=== PATIENT | male | born 1950 | race Caucasian/White ===

== ENCOUNTER → 2018-05-14 10:53 | Emergency (ER) | payer MEDICARE, BC ==
[~2018-05-14 10:53] MED LIST: Ciprofloxacin TAB* 250 MG PO ONE; Famotidine TAB* 20 MG PO ONE; HYDROmorphone INJ* 2 MG/ML CARPUJECT SYRINGE IV SLOW PU ONE; HYDROmorphone INJ1* 1 MG/ML SYRINGE IV SLOW PU ONE; HYDROmorphone INJ1* 1 MG/ML SYRINGE ONE; Iohexol 300* (CONTRAST) 10 ML SDV IV ONE; Morphine VIAL* 4 MG/ML VIAL (1 ml vial) IV ONE; NS 0.9% 1000 ML* 1,000 ML IV ONE; metroNIDAZOLE TAB* 250 MG PO ONE; oxyCODONE/Acetamin 5/325 MG* TAB PO ONE
--- OUTSIDE RECORDS SUMMARY | 2018-05-14 11:24 | XMS REPORT | Continuity of Care Document ---
:1950 External Reference #:[id number] Author Name Marce Diamond PA-C Address [address] [place] [address] [place] [address] Care Team Providers Name Role Phone Lauri Ortega MD Care Team Information Algorithm Design Engineer Unavailable Lauri Ortega MD Primary Care Physician Unavailable Payers Type Date Identification Numbers Payment Provider Subscriber Policy Number: [id number] Medicare Rogelio Young PayID: [id number] [facility] [address] [place] [address] Policy Number: [id number] [facility] Rogelio Young PayID: [id number] [address] [place] [address] Advance Directives Description No Information Available Problems Date Description Provider Status Onset: 03/16/2013 Essential hypertension GERDA Guerra Active Onset: 03/16/2013 Pure hypercholesterolemia GERDA Guerra Active Onset: Acute gastrointestinal hemorrhage Active Onset: Anemia due to blood loss Active Onset: Chest discomfort Active Onset: Coronary arteriosclerosis Active Onset: H/O: anticoagulant therapy Active Onset: Diverticulitis of large intestine Active Onset: For resuscitation Active Onset: Gastroesophageal reflux disease Active Onset: Hyperlipidemia Active Onset: Hypertensive disorder Active Onset: Lightheadedness Active Onset: Benign prostatic hyperplasia Active Onset: 04/06/2018 Internal hemorrhoids Marce Diamond PA-C Active Onset: 04/06/2018 Rectal pain Marce Diamond PA-C Active Onset: 04/25/2018 Generalized abdominal pain LISHA GrissomC Active Onset: 04/25/2018 Nausea Marce Diamond PA-C Active Onset: 04/25/2018 Weight decreased Marce Diamond PA-C Active Family History Description No Information Available Social History Type Date Description Comments Sex Unknown ETOH Use Negative For Drinks 2 Alcoholic Beverages Per Day Tobacco Use Start: Unknown Patient has never smoked Smoking Status Reviewed: 04/25/18 Patient has never smoked Allergies, Adverse Reactions, Alerts Date Description Reaction Status Severity Comments 03/30/2018 Spironolactone Free Text Active 03/16/2013 NKDA Inactive Medications Medication Date Status Form Strength Qnty SIG Indications Ordering Provider Hydrocortisone 04/06/ Active Suppository 25mg 24unit 1 by K64.8 Marce [address]ate [address] LBarbara rectum Dara twice , JAZ daily for 1-2 weeks Lorazepam 03/08/ Active Tablets 0.5mg 60tabs F41.1 2017 Lauri House MD Lisinopril 08/17/ Active Tablets 5mg 90tabs I10 2017 Lauri House MD Rosuvastatin 12/25/ Active Tablets 5mg 90tabs E78.4 Breiman, Calcium 2016 MD Ed Metoprolol 11/17/ Active Tablets ER 50mg 90tabs Hilsdorf, Succinate ER 2016 24HR HENRY Tarango Colchicine 03/23/ Active Tablets 0.6mg 40tabs Breiman, 2015 MD Ed Ecotrin Low 12/17/ Active Tablets DR 81mg Every Unknown Strength 2015 Proscar 12/17/ Active Tablets 5mg Every Unknown 2015 Day Nitrostat 12/17/ Active Tablets Sub 0.4mg Q5M prn Unknown 2015 For chest pain Aspirin Ec 11/17/ Active Tablets DR 81mg 30tabs Midura, 2015 Lauri House MD Pantoprazole 08/12/ Active Tablets DR 40mg 90tabs Midura, Sodium 2010 Lauri House MD Amlodipine 08/13/ Active Tablets 10mg 30tabs Breimaglenna, Besylate 2009 MD Ed Tamsulosin HCL / Active Capsules 0.4mg 30caps 1 po Unknown 0000 qpm Probiotics / Active Unknown 0000 Hydrocodone-Acet / Active Tablets 5-325mg prn Unknown aminophen 0000 Anusol-HC 04/06/ Hx Suppository 25mg 24unit 1 by K64.8 Marce 2018 - s Bran. rectum Swanstrom 2018 twice , PA-C daily for 1-2 weeks Hydrocodone-Acet 03/29/ Hx Tablets 5-325mg 28tabs N41.0 [facility], aminophen 2018 - Lauri House, 2017 Doxycycline 03/17/ Hx Capsules 100mg 20caps N45.1 [facility], Monohydrate 2018 - Lauri House, 2017 Anucort-HC 02/25/ Hx Suppository 25mg 12unit K64.8 [facility], 2018 - jorge House, 2017 Lisinopril 02/13/ Hx Tablets 20mg Daily Ra Gonzalez 2015 - Freddy PATRICIA 2017 Toprol XL 01/22/ Hx Tablets ER 50mg 30tabs Every Unknown 2015 - 24HR Day 2017 Brilinta 01/21/ Hx Tablets 90mg Twice Unknown 2016 - Daily 2017 Allopurinol 12/20/ Hx Tablets 300mg 30tabs [facility], 2014 - Lauri House, 2017 Tamsulosin HCL 06/16/ Hx Capsules 0.4mg 30caps Jordan, 2010 - Lauri House, 2017 Pantoprazole / Hx Tablets DR 40mg 30tabs 1 po qd Unknown Sodium - 2017 Metoprolol / Hx Tablets 50mg 30tabs 1 1/2 Unknown Tartrate 0000 - po qd 2015 Amlodipine / Hx Tablets 10mg 90tabs 1 po qd Unknown Besylate - 2017 Vitamin D3 Super / Hx Tablets 2000Unit Unknown Strength - 2017 Immunizations Description No Information Available Vital Signs Date Vital Result Comment 04/25/2018 8:42am Height 70 inches 5'10" Weight 196.00 lb BMI (Body Mass Index) 28.1 kg/m2 04/06/2018 2:48pm Height 70 inches 5'10" Weight 200.00 lb BP Systolic 150 mmHg BP Diastolic 89 mmHg Heart Rate 55 /min BMI (Body Mass Index) 28.7 kg/m2 02/14/2016 2:43pm Height 70 inches 5'10" Weight 204.00 lb BP Systolic 170 mmHg BP Diastolic 98 mmHg Heart Rate 63 /min BMI (Body Mass Index) 29.3 kg/m2 03/16/2013 1:10pm Height 70 inches 5'10" Weight 216.00 lb BP Systolic 130 mmHg BP Diastolic 80 mmHg Heart Rate 54 /min BMI (Body Mass Index) 31.0 kg/m2 Results Test Date Facility Test Result H/L Range Note Comprehensive Metabolic 03/22/2018 N2N/CCD Import A/G Ratio 2.3 CALC 0.6 -2.3 Prof Albumin 4.8 g/dL 3.8-5.5 Alk. Phosphatase 44 U/L 22-95 Alt (SGPT) 16 U/L 7-35 Ast (Sgot) 17 U/L 5-34 BUN 19 mg/dL 6-26 BUN/Creat Ratio 14.6 CALC 8.0-36.0 Calcium 9.3 mg/dL 8.6-10.2 Carbon Dioxide 24 mEq/L 21-32 Chloride 104 mEq/L 94-112 Creatinine 1.3 mg/dL 0.6-1.4 GFR >60 ml/min/1.73m^ >=60 GFR Non- 59 ml/min/1.73m^ Low >=60 Globulin 2.1 g/dL 2.0-4.8 Glucose 157 mg/dL High 70-105 Potassium 4.0 mEq/L 3.6-5.5 Sodium 142 mEq/L 134-149 Total Bilirubin 0.6 mg/dL 0.2-1.3 Total Protein 6.9 g/dL 6.4-8.3 Laboratory test finding 03/08/2018 N2N/CCD Import BUN 20 mg/dL 6- BUN/Creat Ratio 11.8 CALC 8.0-36.0 Calcium 9.4 mg/dL 8.6-10.2 Carbon Dioxide 27 mEq/L 21-32 Chloride 104 mEq/L 94-112 Creatinine 1.7 mg/dL High 0.6-1.4 GFR 52 ml/min/1.73m^ Low >=60 GFR Non- 43 ml/min/1.73m^ Low >=60 Glucose 100 mg/dL 70-105 Potassium 4.2 mEq/L 3.6-5.5 Sodium 136 mEq/L 134-149 Comprehensive Metabolic Prof 12/31/2017 N2N/CCD Import A/G Ratio 2.1 CALC 0.6-2.3 Albumin 4.8 g/dL 3.8-5.5 Alk. Phosphatase 51 U/L 22-95 Alt (SGPT) 20 U/L 7-35 Ast (Sgot) 20 U/L 5-34 BUN 21 mg/dL 6-26 BUN/Creat Ratio 17.5 CALC 8.0-36.0 Calcium 9.6 mg/dL 8.6-10.2 Carbon Dioxide 23 mEq/L 21-32 Chloride 103 mEq/L 94-112 Creatinine 1.2 mg/dL 0.6-1.4 GFR >60 ml/min/1.73m^ >=60 GFR Non- >60 ml/min/1.73m^ >=60 Globulin 2.3 g/dL 2.0-4.8 Glucose 204 mg/dL High 70-105 Potassium 4.2 mEq/L 3.6-5.5 Sodium 134 mEq/L 134-149 Total Bilirubin 0.6 mg/dL 0.2-1.3 Total Protein 7.1 g/dL 6.4-8.3 CBC W/Auto 02/14/2016 [facility] 7.2 3/UL 4.8- 10.8 Differential(!) [address] [place] [address] Count Ser [phone] Auto CNT RBC Red Blood Count 4.12 X106/UL Low 4.60-6.20 Hemoglobin Blood 12.4 g/dL Low 14-18 Hematocrit 37.4 % Low 42-52 MCV (Corpuscular Volume) 90.8 FL 79-97 MCH (Corpuscular Hemoglobin) 30.1 pg 27-31 MCHC (Corpuscular Hemog Conc) 33.2 g/dL 32.0-36.0 RDW 16.3 % High 10.5-15.0 Platelet Count Blood Auto CNT 271 X103/UL 150-450 MPV 7.1 FL Low 7.4-10.4 Lymph% 21.7 % 20.0-45.0 [place]% 6.7 % 1.0-9.0 Neutrophil % 71.6 % 38.0-83.0 Absolute Lymphocytes 1.6 X103/UL 1.0-4.8 Absolute Monocytes 0.5 X103/UL 0.0-0.8 Absolute Neutrophils 5.2 X103/UL 1.5-7.7 Laboratory Studies 01/23/2016 N2N/CCD Import Hematocrit 27 % Low 42-52 Hemoglobin 9.4 g/dL Low 14.0-18.0 Laboratory Studies 01/22/2016 N2N/CCD Import Troponin I 0.01 ng/mL Laboratory Studies 01/22/2016 N2N/CCD Import Absolute Basophils 0 10^3/ul 0-0.2 (auto) Absolute Eosinophils (auto) 0.2 10^3/ul 0-0.6 Absolute Lymphocytes (auto) 1.3 10^3/ul 1.0-4.8 Absolute Monocytes (auto) 0.4 10^3/ul 0-0.8 Absolute Neutrophils (auto) 3.6 10^3/ul 1.5-7.7 Anion Gap 5 mmol/L 2-11 BUN/Creatinine Ratio 10.0 8-20 Basophils (%) (Auto) 0.7 % 0-2 Blood Urea Nitrogen 11 mg/dL 6-24 Calcium Level 8.7 mg/dL 8.6-10.3 Carbon Dioxide Level 28 mmol/L 22-32 Chloride Level 107 mmol/L 101-111 Creatinine 1.10 mg/dL 0.67-1.17 Eosinophils (%) (Auto) 3.3 % 0-6 Estimated GFR () 86.7 Estimated GFR (Non- 67.4 Glucose Level 106 mg/dL High 70-100 Lymphocytes (%) (Auto) 23.0 % Low 25-47 Mean Corpuscular Hemoglobin 30 pg 27-31 Mean Corpuscular Hemoglobin Concent 34 g/dL 31-36 Mean Corpuscular Volume 86 fL 80-94 Mean Platelet Volume 7 um3 Low 7.4-10.4 Monocytes (%) (Auto) 7.0 % 1-9 Neutrophils (%) (Auto) 66.0 % 38-83 Nucleated RBC Absolute Count (auto) 0 10^3/ul Nucleated Red Blood Cells % 0 Platelet Count 212 10^3/ul 150-450 Potassium Level 3.6 mmol/L 3.5-5.0 Red Blood Count 2.86 10^6/ul Low 4.0-5.4 Red Cell Distribution Width 15 % 10.5-15 Sodium Level 140 mmol/L 133-145 White Blood Count 5.4 10^3/ul 3.5-10.8 Laboratory Studies 01/21/2016 N2N/CCD Import Urine Specific 1.002 Low 1.010-1.030 [place] Urine pH 6.0 5-9 Laboratory 01/21/2016 N2N/CCD Import Alanine 114 U/L High 7-52 Studies Aminotransferase (Alt/SGPT) Albumin 3.8 g/dL 3.2-5.2 Albumin/Globulin Ratio 1.5 1-3 Alkaline Phosphatase 49 U/L 34-104 Aspartate Amino Transf (Ast/Sgot) 45 U/L High 13-39 B-Type Natriuretic Peptide 407 pg/mL High Globulin 2.6 g/dL 2-4 International Ratio (Anticoag Ther) 1.00 0.89-1.11 Magnesium Level 1.9 mg/dL 1.9-2.7 Total Bilirubin 0.70 mg/dL 0.2-1.0 Total Protein 6.4 g/dL 6.4-8.9 Xray 01/21/2016 [facility] Radiology Chest Ap Portable <pending> Xray 01/21/2016 [facility] Radiology US Abdomen Limited <pending> Laboratory Studies 01/14/2016 N2N/CCD Import Amylase Level 30 U/L 29- 103 C-Reactive Protein 1.77 mg/L 0-5.00 Lipase 14 U/L 11.0-82.0 Xray 01/02/2016 [facility] Radiology CT Abd/Pel W <pending> Laboratory Studies 01/02/2016 N2N/CCD Import Lactic Acid Level 1.6 mmol/L 0.5-2.0 Xray 09/14/2014 [facility] Radiology Esophagus <pending> Clotest 04/19/2013 [facility] Clotest (SEE NOTE) Xray 09/08/2012 [facility] Radiology CT Abd/Pel W <pending> Xray 05/24/2008 [facility] Radiology CT Abd/Pel W <pending> Xray 04/08/2008 [facility] Radiology CT Abd/Pel W <pending> Xray 03/29/2003 [facility] Radiology CT Abd/Pel W <pending> Procedures Date Code Description Status 04/19/2013 94853 Colonoscopy Completed 04/19/2013 11336 EGD+Biopsy Single Or Multiple Completed 05/25/2008 35652 EGD+Biopsy Single Or Multiple Completed 04/09/2008 69420 Colonscopy+Biopsy Completed 04/02/2006 07894 Colonoscopy Completed 10/08/2005 42421 EGD- Upper Endoscopy Completed 10/06/2005 35208 Colonoscopy Completed 10/06/2005 12456 EGD+Biopsy Single Or Multiple Completed Encounters Type Date Location Provider Dx Diagnosis Office Visit 02/14/2016 [facility] K57.30 [facility] MD int w/o perforation or abscess w/o bleeding K57.31 [facility] int w/o perforation or abscess w bleeding Office Visit 03/16/2013 [facility] [place] 530.81 Esophageal 1:15p [facility] QUALITY COMPLIANCE MANAGER-C 789.00 Pain Abdominal Unspec Site V76.51 Special Screening For Malignant Neoplasms Colon 272.0 Hypercholesterolemia Pure Plan of Treatment Future Appointment(s):06/01/2018 8:45 am - Sridevi Walls MD at [facility]04/25/2018 - ALBERT Grissom-CR10.84 Generalized abdominal painR11.0 FcdyfvA58.4 Abnormal weight lossK62.89 Other specified diseases of anus and uxgfmnI38.5 Hemorrhage of anus and rectum
[2018-05-14 11:45] LABS: ABS Basophils 0 10^3/ul (0-0.2); ABS Eosinophils 0.1 10^3/ul (0-0.6); ABS Lymphocytes 0.9 10^3/ul (1.0-4.8); ABS Monocytes 0.4 10^3/ul (0-0.8); ABS Neutrophils 4.6 10^3/ul (1.5-7.7); ABS Nucleated RBC 0 10^3/ul; Eosinophil % 1.8 %; Hematocrit 39 % (42-52); Hemoglobin 13.6 g/dl (14.0-18.0); Mean Corpuscular HGB Conc 35 g/dl (31-36); Mean Corpuscular Hemoglobin 30 pg (27-31); Mean Corpuscular Volume 85 fL (80-94); Mean Platelet Volume 7.2 fL (7.4-10.4); Nucleated Red Blood Cells % 0; Platelet Count 222 10^3/ul (150-450); Red Blood Count 4.54 10^6/ul (4.00-5.40); Red Cell Distribution Width 14 % (10.5-15)
[2018-05-14 12:00] LABS: Urine Appearance Cloudy; Urine Blood Negative (Negative); Urine Color Yellow; Urine Ketones Negative (Negative); Urine Protein Negative (Negative); Urine Specific Gravity 1.017 (1.010-1.030); Urine Urobilinogen Negative (Negative)
[2018-05-14 12:03] LABS: EGFR Non-African American 63.6 (>60)
--- NOTE | 2018-05-14 12:08 | ED ---
GI/ HPI - HPI Summary HPI Summary: This patient is a 67 year old male presenting to [facility] accompanied by family with a chief complaint of hemorrhoid-like pain since 4am today. Patient states that pain in his rectum radiates into his right testicle, penis, and abd. He states that he felt like he needed to go to the bathroom, but doing so did not alleviate the pain. The pain is constant, but with intermittent spikes in intensity. The pain is rated 5/10 in severity. Symptoms aggravated by nothing. Symptoms alleviated by nothing. Patient denies penile discharge. Patient notes that his antibiotics did not help at all. Patient's brother notes that the patient lost his a year ago and he complains about pain more during the holidays. His brother is unsure if he has been taking his daily medication. - History of Current Complaint Chief Complaint: EDRectalPain Time Seen by Provider: 05/14/18 11:02 Stated Complaint: PAIN IN GENITAL AREA/ABD PAIN Hx Obtained From: Patient Onset/Duration: Started Hours Ago, Still Present Timing: Constant Severity: Moderate Current Severity: Mild Pain Intensity: 5 Location of Pain: Groin, Rectal Associated Signs and Symptoms: Positive: Negative - penile discharge Aggravating Factor(s): Nothing Alleviating Factor(s): Nothing - Additional Pertinent History Primary Care Physician: [id number] - Allergy/Home Medications Allergies/Adverse Reactions: Allergies Allergy/AdvReac Type Severity Reaction Status Date / Time No Known Allergies Allergy Verified 02/24/18 08:21 Home Medications: Home Medications DULoxetine DR CAP* [Cymbalta CAP*] 30 mg PO DAILY 05/14/18 [History Confirmed ] Hydrocodone/Acetaminophen [Hydrocodone-Acetamin 5-325 mg] 1 tab PO Q6HR PRN [History Confirmed 05/14/18] Lisinopril TAB* [Prinivil TAB 5 MG*] 5 mg PO DAILY 05/14/18 [History Confirmed 05/14/18] Metoprolol Succinate XL TAB* [Toprol XL TAB*] 75 mg PO DAILY 05/14/18 [History Confirmed 05/14/18] Rosuvastatin (NF) [Crestor (NF)] 5 mg PO 1700 05/14/18 [History Confirmed ] Tamsulosin CAP* [Flomax CAP*] 0.4 mg PO DAILY 05/14/18 [History Confirmed ] amLODIPine TAB* [Norvasc 5 mg TAB*] 10 mg PO DAILY 05/14/18 [History Confirmed 05/14/18] PMH/Surg Hx/FS Hx/Imm Hx Previously Healthy: Yes Endocrine/Hematology History: Reports: Hx Anticoagulant Therapy Denies: Hx Diabetes - borderline, not on meds Cardiovascular History: Reports: Hx Coronary Artery Disease, Hx Hypercholesterolemia, Hx Hypertension, Hx Syncope Denies: Hx Congestive Heart Failure, Hx Myocardial Infarction, Hx Valvular Heart Disease Respiratory History: Reports: Hx Sleep Apnea Denies: Hx Asthma, Hx Chronic Obstructive Pulmonary Disease (COPD) GI History: Reports: Hx Diverticulosis - bowel resection, Other GI Disorders - GI Bleed History: Reports: Hx Benign Prostatic Hyperplasia Denies: Hx Dialysis, Hx Renal Disease Musculoskeletal History: Reports: Hx Arthritis, Hx Back Problems Sensory History: Reports: Hx Contacts or Glasses - left at home Opthamlomology History: Reports: Hx Contacts or Glasses - left at home - Surgical History Surgery Procedure, Year, and Place: [facility], 2 FT COLON REMOVED FOR DIVERTICULITIS, PARATHYROID,RIGHT KNEE,cardiac stents Hx Anesthesia Reactions: No Infectious Disease History: No Infectious Disease History: Denies: Traveled Outside the [place] in Last 30 Days - Family History Known Family History: Negative: Hypertension - Social History Lives: With Family Alcohol Use: Occasionally Alcohol Amount: on fridays only Hx Substance Use: No Substance Use Type: Reports: None Hx Tobacco Use: No Smoking Status (MU): Never Smoked Tobacco Have You Smoked in the Last Year: No Review of Systems Negative: Fever Positive: Other - rectal pain Genitourinary: Negative - penile discharge Positive: other - testicular pain All Other Systems Reviewed And Are Negative: Yes Physical Exam - Summary Physical Exam Summary: Appearance: Well appearing, no pain distress. Skin: warm, dry, reflects adequate perfusion Head/face: normal Eyes: EOMI, JERZY ENT: mucous membranes moist Neck: supple, non-tender Respiratory: CTA, breath sounds present Cardiovascular: RRR, pulses symmetrical Abdomen: non-tender, soft Bowel Sounds: present Testicular: no rashes or legions, no rectal hemorrhoids, no prostate tenderness , no stool Musculoskeletal: normal, strength/ROM intact Neuro: normal, sensory motor intact, A&Ox3 Triage Information Reviewed: Yes Vital Signs On Initial Exam: Initial Vitals Pulse Pulse Ox 56 96 05/14/18 11:20 05/14/18 11:20 Vital Signs Reviewed: Yes Diagnostics - Vital Signs Vital Signs Temp Pulse Resp BP Pulse Ox 05/14/18 11:41 98.5 F 55 18 193/103 98 05/14/18 11:32 18 05/14/18 11:22 54 193/103 97 05/14/18 11:21 52 192/100 96 05/14/18 11:20 56 96 - Laboratory Lab Results: Lab Results 05/14/18 05/14/18 05/14/18 Range/Units 11:29 11:29 11:29 WBC 6.0 (3.5-10.8) 10^3/ul RBC 4.54 (4.00-5.40) 10^6/ul Hgb 13.6 L (14.0-18.0) g/dl Hct 39 L (42-52) % MCV 85 (80-94) fL MCH 30 (27-31) pg MCHC 35 (31-36) g/dl RDW 14 (10.5-15) % Plt Count 222 (150-450) 10^3/ul MPV 7.2 L (7.4-10.4) fL Neut % (Auto) 76.3 % Lymph % (Auto) 15.0 % Mclean % (Auto) 6.1 % Eos % (Auto) 1.8 % Baso % (Auto) 0.8 % Absolute Neuts (auto) 4.6 (1.5-7.7) 10^3/ul Absolute Lymphs (auto) 0.9 L (1.0-4.8) 10^3/ul Absolute Monos (auto) 0.4 (0-0.8) 10^3/ul Absolute Eos (auto) 0.1 (0-0.6) 10^3/ul Absolute Basos (auto) 0 (0-0.2) 10^3/ul Absolute Nucleated RBC 0 10^3/ul Nucleated RBC % 0 ESR Pending INR (Anticoag Therapy) 1.00 (0.77-1.02) Lactic Acid (0.5-2.0) mmol/L Ammonia 40 (16-53) mcmol/L Urine Color Urine Appearance Urine pH (5-9) Ur Specific [place] (1.010-1.030) Urine Protein (Negative) Urine Ketones (Negative) Urine Blood (Negative) Urine Nitrate (Negative) Urine Bilirubin (Negative) Urine Urobilinogen (Negative) Ur Leukocyte Esterase (Negative) Urine Glucose (Negative) 05/14/18 05/14/18 Range/Units 11:29 11:45 WBC (3.5-10.8) 10^3/ul RBC (4.00-5.40) 10^6/ul Hgb (14.0-18.0) g/dl Hct (42-52) % MCV (80-94) fL MCH (27-31) pg MCHC (31-36) g/dl RDW (10.5-15) % Plt Count (150-450) 10^3/ul MPV (7.4-10.4) fL Neut % (Auto) % Lymph % (Auto) % Mclean % (Auto) % Eos % (Auto) % Baso % (Auto) % Absolute Neuts (auto) (1.5-7.7) 10^3/ul Absolute Lymphs (auto) (1.0-4.8) 10^3/ul Absolute Monos (auto) (0-0.8) 10^3/ul Absolute Eos (auto) (0-0.6) 10^3/ul Absolute Basos (auto) (0-0.2) 10^3/ul Absolute Nucleated RBC 10^3/ul Nucleated RBC % ESR INR (Anticoag Therapy) (0.77-1.02) Lactic Acid 1.3 (0.5-2.0) mmol/L Ammonia (16-53) mcmol/L Urine Color Yellow Urine Appearance Cloudy Urine pH 6.0 (5-9) Ur Specific [place] 1.017 (1.010-1.030) Urine Protein Negative (Negative) Urine Ketones Negative (Negative) Urine Blood Negative (Negative) Urine Nitrate Negative (Negative) Urine Bilirubin Negative (Negative) Urine Urobilinogen Negative (Negative) Ur Leukocyte Esterase Negative (Negative) Urine Glucose Negative (Negative) Result Diagrams: 05/14/18 11:29 05/14/18 11:29 Lab Statement: Any lab studies that have been ordered have been reviewed, and results considered in the medical decision making process. - CT CT Abd/Pel CT Interpretation Completed By: Radiologist Summary of CT Findings: CT Abd/Pel reveals, per radiologist, IMPRESSION: 1. FATTY INFILTRATION OF THE LIVER. 2. DIVERTICULOSIS. 3. ENLARGED PROSTATE. 4. ATHEROSCLEROSIS. ED physician has reviewed this radiology report. GIGU Course/Dx - Course Course Of Treatment: Nurse's notes reviewed. Patient with chronic rectal and lower abdominal/pelvic pain for some time. He has had colonoscopy, urology evaluation and other things done. This is failed to make a diagnosis for him. He had full laboratories including CRP, Pro calcitonin and WBC see which are all negative today. He had a fully contrasted scan of his abdomen and pelvis that was also negative aside from diverticulosis. There are no hemorrhoids seen on rectal exam. He has significant tenderness in in that area. His elected that he be placed on antibiotics. The patient wished to be admitted to the hospital and so I presented the case to the hospitalist. She felt there is no indication for admission. As such, the patient be placed on oral medications and discharged for close follow-up with primary care physician. - Diagnoses Differential Diagnoses - Male: Other - Prostatitis, UTI, prostatitis, diverticulitis, pelvic mass, conversion disorder, depression Provider Diagnoses: Diverticulosis, Hypertension, Rectal pain - Physician Notifications Discussed Care Of Patient With: Luanne Inman - Hospitalist Time Discussed With Above Provider: 13:40 - We discussed patient care with Dr. Inman (Hospitalist) at 1340 and they recommended discharging the patient. Instructed by Provider To: Other Discharge - Sign-Out/Discharge Documenting (check all that apply): Patient Departure - Discharge Plan Condition: Improved Disposition: HOME Prescriptions: Ciprofloxacin TAB* [Cipro 500 MG TAB*] 500 mg PO BID #20 tab Famotidine TAB* [Pepcid 20 MG TAB*] 20 mg PO BID #40 tab metroNIDAZOLE [Flagyl 500 MG TAB] 500 mg PO TID #30 tab Patient Education Materials: Rectal Pain (ED) Referrals: Lauri Ortega MD [Primary Care Provider] - Additional Instructions: Do not drink alcohol with Flagyl medication. Take your pain medication with stool softener. Wall diet. Drink plenty of fluids. Return with fever, increased or uncontrolled pain, worse or other concerns. See your doctor on Wednesday for reevaluation and recheck of your kidney function. Your blood pressure medication and the antibiotics may affect this. BP was elevated, have this rechecked early in the week. Colonoscopy in May as scheduled. - Billing Disposition and Condition Condition: IMPROVED Disposition: Home - Attestation Statements Document Initiated by Adriano: Yes Documenting Scribe: Selena Kern Provider For Whom Adriano is Documenting (Include Credential): Deepak Gomez MD Scribe Attestation: Selena Hurt, scribed for Deepak Gomez MD on 05/14/18 at 1510. Scribe Documentation Reviewed: Yes Provider Attestation: The documentation as recorded by the Selena pitts accurately reflects the service I personally performed and the decisions made by , Deepak Gomez MD Status of Adriano Document: Viewed
[2018-05-14] MEDS: Levofloxacin 750 MG IVPREMIX(* 750 MG/150 ML BAG IVPB ONE ×2 (13:36→13:47)
[2018-05-14] MEDS: metroNIDAZOLE IV 500 MG/100ML* 500 MG/100 ML BAG IVPB ONE ×2 (13:36→13:47)
[2018-05-14 13:39] VITALS: BP 170/95
== END | disposition home or self-care (01) ==
LOC: ED 10:53
DX: K57.90 Diverticulosis of intestine, part unspecified, without perforation or abscess without bleeding (principal); I10 Essential (primary) hypertension; K62.89 Other specified diseases of anus and rectum; Z79.01 Long term (current) use of anticoagulants
CPT/HCPCS: 36415; 74177; 80053; 80320; 81003; 82140; 82150; 82550; 83605; 83690; 84145; 84484; 85025; 85610; 85652; 86140; 96361; 96374; 96375; 96376; 99284; A9270-GY; G0480; J1170; J2270; J3490; Q9967

== ENCOUNTER 2018-05-23 10:51 | Emergency (ER) | payer MEDICARE, BC ==
--- NOTE | 2018-05-23 11:35 | ED ---
GI/ HPI - HPI Summary HPI Summary: This patient is a 67 year old M presenting to [facility] with a chief complaint of a fiery pain in his rectum that began this morning that is worse when he is lying down. The patient states that he has ABD pain every morning with associated nausea and diaphoresis. In the day it is intermittent and is better when he is standing. The patient rates the pain 7/10 in severity. Symptoms aggravated by eating. Pt has been eating less due to this and has lost weight. He states he has had this rectal problem for 4 months and is seeing his PCP who has been giving him abx and urology told him he has an inflamed prostate. He has a colonoscopy planned for the of May but he states he is afraid something is very wrong with him and does not want to wait. He had a CT done on the of this month. He is taking NSAIDs every four hours and doesnt want to need to keep doing this for relief. He has had trouble sleeping and a new headache, as well as left testicular pain (US scheduled by urology). He has part of his colectomy due to diverticulitis, appendectomy, and cholecystectomy. He denies lower back pain. - History of Current Complaint Chief Complaint: EDRectalPain Time Seen by Provider: 05/23/18 11:26 Stated Complaint: BURNING IN TESTICALS, AND RECTUM, NAUSEOUS Hx Obtained From: Patient Onset/Duration: Started Weeks Ago - about 16, Still Present Timing: Intermittent Severity: Moderate Current Severity: Moderate Pain Intensity: 7 Location of Pain: Other Associated Signs and Symptoms: Positive: Other: - diaphorieis, ROGERS, testicular pain - Additional Pertinent History Primary Care Physician: ODALIS - Allergy/Home Medications Allergies/Adverse Reactions: Allergies Allergy/AdvReac Type Severity Reaction Status Date / Time spironolactone Allergy Unknown Verified 05/18/18 10:47 Reaction Details PMH/Surg Hx/FS Hx/Imm Hx Endocrine/Hematology History: Reports: Hx Anticoagulant Therapy Denies: Hx Diabetes - borderline, not on meds Cardiovascular History: Reports: Hx Coronary Artery Disease, Hx Hypercholesterolemia, Hx Hypertension, Hx Syncope Denies: Hx Congestive Heart Failure, Hx Myocardial Infarction, Hx Valvular Heart Disease Respiratory History: Reports: Hx Sleep Apnea Denies: Hx Asthma, Hx Chronic Obstructive Pulmonary Disease (COPD) GI History: Reports: Hx Diverticulosis - bowel resection, Other GI Disorders - GI Bleed History: Reports: Hx Benign Prostatic Hyperplasia Denies: Hx Dialysis, Hx Renal Disease Musculoskeletal History: Reports: Hx Arthritis, Hx Back Problems Sensory History: Reports: Hx Contacts or Glasses - left at home Opthamlomology History: Reports: Hx Contacts or Glasses - left at home Psychiatric History: Denies: Hx Panic Disorder - Surgical History Surgery Procedure, Year, and Place: APPY, SADI, 2 FT COLON REMOVED FOR DIVERTICULITIS, PARATHYROID,RIGHT KNEE,cardiac stents Hx Anesthesia Reactions: No Infectious Disease History: No Infectious Disease History: Denies: Traveled Outside the [place] in Last 30 Days - Family History Known Family History: Negative: Hypertension - Social History Alcohol Use: Occasionally Alcohol Amount: on fridays only Hx Substance Use: No Substance Use Type: Reports: None Hx Tobacco Use: No Smoking Status (MU): Never Smoked Tobacco Have You Smoked in the Last Year: No Review of Systems Positive: Skin Diaphoresis, Other - disturbed sleep Gastrointestinal: Other - rectal pain Positive: Abdominal Pain, Nausea, Other - weight loss Genitourinary: Other - left testicular pain Musculoskeletal: Negative - lower back pain Positive: Headache All Other Systems Reviewed And Are Negative: Yes Physical Exam - Summary Physical Exam Summary: General: well-appearing, no pain distress Skin: warm, color reflects adequate perfusion, dry Head: normal Eyes: EOMI, JERZY ENT: normal Neck: supple, nontender Respiratory: CTA, breath sounds present Cardiovascular: RRR Abdomen: soft, nontender Bowel: present Musculoskeletal: normal, strength/ROM intact Neurological: sensory/motor intact, A&O x3 Psychological: appears anxious Rectal: anus was nml on appearance it was non TTP, no hemorrhoid or fissures : nml right testicle, small left testicle. Non tender no masses palpated Triage Information Reviewed: Yes Vital Signs On Initial Exam: Initial Vitals Temp Pulse Resp BP Pulse Ox 98.6 F 64 18 119/79 99 05/23/18 11:00 05/23/18 11:00 05/23/18 11:00 05/23/18 11:00 05/23/18 11:00 Vital Signs Reviewed: Yes Diagnostics - Vital Signs Vital Signs Temp Pulse Resp BP Pulse Ox 05/23/18 11:00 98.6 F 64 18 119/79 99 - Laboratory Lab Statement: Any lab studies that have been ordered have been reviewed, and results considered in the medical decision making process. - Additional Comments Diagnostic Additional Comments: Testicular US reveals, per radiologist #. No sonographic abnormality of the normal volume RIGHT testicle evident. No evidence for RIGHT epididymal orchitis. #. Small RIGHT hydrocele. #. Probable posttraumatic diminutive LEFT testicle without acute finding. ED physician has reviewed this radiology report. GIGU Course/Dx - Course Course Of Treatment: Patient had a recent abdominal and pelvis CT and has been on antibiotics and he reports a endoscopy with the communications professional that did not show fissure but did show internal hemorrhoids. External anal examination is normal today. The testicular ultrasound did not show any acute abnormality. Patient had testicular torsion on the left side when he was in his teen years and has a small testicle on the left side chronically. We discussed anxiety and the patient would like to be on an anti-anxiety medicine to use when necessary. Also will try Proctofoam to see if that helps if the origin of his causes anal sphincter spasm. Patient has a follow-up with urology in the next week he has a colonoscopy scheduled for June 01, 2018. Patient's return to the emergency department if he has any worsening of his condition or questions or concerns. - Diagnoses Provider Diagnoses: Anal pain, Testicular/scrotal pain, Anxiety, Nausea Discharge - Sign-Out/Discharge Documenting (check all that apply): Patient Departure - Discharge Plan Condition: Stable Disposition: HOME Prescriptions: Hydrocortisone/Pramoxine [Proctofoam-Hc 1%-1% Foam] 1 applic IN Q6H PRN #10 gm PRN Reason: Pain LORazepam [Ativan 1 MG TAB] 1 mg PO Q8H PRN #15 tablet MDD 3 PRN Reason: Anxiety Ondansetron ODT TAB* [Zofran 4 MG Odt TAB*] 4 mg PO Q6H PRN #10 tab.odt PRN Reason: Nausea Patient Education Materials: Rectal Pain (ED), Scrotal Pain (ED), Anxiety (ED) Referrals: Lauri Ortega MD [Primary Care Provider] - Additional Instructions: FOLLOW UP WITH YOUR DOCTOR. GET RECHECKED FOR ANY WORSENING OF YOUR CONDITION OR QUESTIONS OR CONCERNS. - Billing Disposition and Condition Condition: STABLE Disposition: Home - Attestation Statements Document Initiated by Scribe: Yes Documenting Scribe: Andrzej Ross Provider For Whom Scribe is Documenting (Include Credential): Bassam Kirby MD Scribe Attestation: I, Andrzej Ross , scribed for Bassam Kirby MD on 05/23/18 at 1430. Scribe Documentation Reviewed: Yes Provider Attestation: The documentation as recorded by the Andrzej pitts accurately reflects the service I personally performed and the decisions made by me, Bassam Kirby MD Status of Scribe Document: Viewed
[2018-05-23 14:48] VITALS: BP 123/78
== END 2018-05-23 14:47 | disposition home or self-care (01) ==
LOC: ED 10:51
DX: K62.89 Other specified diseases of anus and rectum (principal); N50.812 Left testicular pain; N50.811 Right testicular pain; N50.82 Scrotal pain; R11.0 Nausea; F41.9 Anxiety disorder, unspecified; N43.3 Hydrocele, unspecified; I25.10 Atherosclerotic heart disease of native coronary artery without angina pectoris; I10 Essential (primary) hypertension; Z95.5 Presence of coronary angioplasty implant and graft; Z79.01 Long term (current) use of anticoagulants
CPT/HCPCS: 76870; 99282

== ENCOUNTER 2020-01-14 10:53 | Inpatient (IN) ==
[2020-01-14] MEDS ORDERED: NS 0.9% 1000 ml BAG 1,000 ML IV ONE ×2 (11:22→14:15)
[2020-01-14 11:43] LABS: ABS Eosinophils 0.2 10^3/ul (0-0.6); ABS Monocytes 0.4 10^3/ul (0-0.8); ABS Neutrophils 3.8 10^3/ul (1.5-7.7); Eosinophil % 2.9 %; Hematocrit 40 % (42-52); Hemoglobin 13.8 g/dL (14.0-18.0); Lymphocyte % 17.9 %; Mean Corpuscular HGB Conc 35 g/dL (31-36); Mean Corpuscular Hemoglobin 29 pg (27-31); Mean Corpuscular Volume 85 fL (80-94); Mean Platelet Volume 7.8 fL (7.4-10.4); Nucleated Red Blood Cells % 0.1; Platelet Count 193 10^3/uL (150-450); Red Blood Count 4.69 10^6 /uL (4.18-5.48); Red Cell Distribution Width 17 % (10-15); White Blood Count 5.3 10^3/uL (3.5-10.8)
[2020-01-14 11:57] LABS: Urine Appearance Clear; Urine Bilirubin Negative (Negative); Urine Blood Negative (Negative); Urine Color Straw; Urine Glucose 3+(>=500 mg/dL) (Negative); Urine Ketones Negative (Negative); Urine Nitrite Negative (Negative); Urine Protein Negative (Negative); Urine Specific Gravity 1.006 (1.010-1.030); Urine Urobilinogen Negative (Negative)
[2020-01-14 11:58] LABS: ALT 36 U/L (7-52); AST 27 U/L (13-39); Albumin 4.4 g/dL (3.2-5.2); Albumin/Globulin Ratio 1.6 (1-3); Alkaline Phosphatase 55 U/L (34-104); Anion Gap 7 mmol/L (2-11); BUN/Creatinine Ratio 18.7 (8-20); Blood Urea Nitrogen 28 mg/dL (6-24); C Reactive Protein < 1.00 mg/L (<8.01); CO2 Carbon Dioxide 28 mmol/L (22-32); Calcium 9.9 mg/dL (8.6-10.3); Chloride 103 mmol/L (101-111); EGFR African American 56.3 (>60); EGFR Non-African American 46.5 (>60); Globulin 2.8 g/dL (2-4); Glucose 103 mg/dL (70-100); Lipase 19 U/L (11.0-82.0); Potassium 4.4 mmol/L (3.5-5.0); Sodium 138 mmol/L (135-145); Total Protein 7.2 g/dL (6.4-8.9)
[2020-01-14] MEDS ORDERED: Iodixanol (CONTRAST) 320 MG/ML 100 ML SDV IV ONE (12:54)
[2020-01-14] MEDS ORDERED: Piperacillin/Tazobac ADVAN 3.375 GM in NS 0.9% 100 ml BAG 100 ML IVPB ONE (14:15)
[2020-01-14] MEDS ORDERED: Zosyn per Pharmacy NOTE FOLLOW UP SCH (15:00)
[2020-01-14] MEDS ORDERED: Dextrose 50% Syringe 50 ml 25 GM/50 ML SYRINGE IV PUSH PRN (15:12)
[2020-01-14] MEDS: NS 0.9% 1000 ml BAG 1,000 ML IV SCH (16:46)
[2020-01-14] MEDS: Enoxaparin 40 MG/0.4 ML SYR SUBCUT SCH (17:07)
[2020-01-14] MEDS: ZOSYN 3.375 GM Q8H per EXTENDED INFUSION IV SCH (18:03)
[2020-01-14] MEDS: CMCS:Rosuvastatin 5 mg TAB (NF) PO SCH (18:04)
[2020-01-14] MEDS: Ondansetron 4 mg VIAL 2 MG/ML 2 ml VIAL IV PRN (19:13)
[2020-01-15] MEDS: Morphine 2 MG/ML SYRINGE IV PRN ×2 (00:13→06:24)
[2020-01-15] MEDS: ZOSYN 3.375 GM Q8H per EXTENDED INFUSION IV SCH ×3 (02:14→17:59)
[2020-01-15] MEDS: Ondansetron 4 mg VIAL 2 MG/ML 2 ml VIAL IV PRN (02:14)
[2020-01-15] MEDS: NS 0.9% 1000 ml BAG 1,000 ML IV SCH (06:18)
[2020-01-15 07:08] LABS: ABS Eosinophils 0.1 10^3/ul (0-0.6); ABS Lymphocytes 0.9 10^3/ul (1.0-4.8); ABS Monocytes 0.3 10^3/ul (0-0.8); ABS Neutrophils 2.3 10^3/ul (1.5-7.7); Eosinophil % 3.9 %; Hematocrit 36 % (42-52); Hemoglobin 12.9 g/dL (14.0-18.0); Mean Corpuscular HGB Conc 36 g/dL (31-36); Mean Corpuscular Hemoglobin 30 pg (27-31); Mean Corpuscular Volume 84 fL (80-94); Mean Platelet Volume 7.6 fL (7.4-10.4); Nucleated Red Blood Cells % 0.1; Platelet Count 159 10^3/uL (150-450); Red Blood Count 4.32 10^6 /uL (4.18-5.48); Red Cell Distribution Width 16 % (10-15); White Blood Count 3.7 10^3/uL (3.5-10.8)
[2020-01-15 07:23] LABS: BUN/Creatinine Ratio 13.6 (8-20); Calcium 9.1 mg/dL (8.6-10.3); EGFR African American 65.3 (>60); EGFR Non-African American 53.9 (>60); Magnesium 2.1 mg/dL (1.9-2.7)
[2020-01-15] MEDS: Aspirin EC 81 mg TAB.EC (enteric coated) PO SCH (09:17)
[2020-01-15] MEDS: Enoxaparin 40 MG/0.4 ML SYR SUBCUT SCH (16:11)
[2020-01-15] MEDS: CMCS:Rosuvastatin 5 mg TAB (NF) PO SCH (18:00)
[2020-01-16] MEDS: ZOSYN 3.375 GM Q8H per EXTENDED INFUSION IV SCH ×3 (02:19→18:01)
[2020-01-16] MEDS: Aspirin EC 81 mg TAB.EC (enteric coated) PO SCH (08:38)
[2020-01-16] MEDS: Morphine 2 MG/ML SYRINGE IV PRN ×2 (08:45→21:42)
[2020-01-16] MEDS: NS 0.9% 1000 ml BAG 1,000 ML IV SCH (12:06)
[2020-01-16 12:55] LABS: ABS Eosinophils 0.2 10^3/ul (0-0.6); ABS Lymphocytes 1.2 10^3/ul (1.0-4.8); ABS Monocytes 0.4 10^3/ul (0-0.8); ABS Neutrophils 2.8 10^3/ul (1.5-7.7); Hematocrit 37 % (42-52); Lymphocyte % 25.2 %; Mean Corpuscular HGB Conc 35 g/dL (31-36); Mean Corpuscular Hemoglobin 30 pg (27-31); Mean Corpuscular Volume 85 fL (80-94); Mean Platelet Volume 7.9 fL (7.4-10.4); Nucleated Red Blood Cells % 0.1; Platelet Count 168 10^3/uL (150-450); Red Blood Count 4.36 10^6 /uL (4.18-5.48); Red Cell Distribution Width 16 % (10-15); White Blood Count 4.6 10^3/uL (3.5-10.8)
[2020-01-16 13:21] LABS: Anion Gap 4 mmol/L (2-11); BUN/Creatinine Ratio 8.7 (8-20); Blood Urea Nitrogen 12 mg/dL (6-24); C Reactive Protein < 1.00 mg/L (<8.01); CO2 Carbon Dioxide 26 mmol/L (22-32); Calcium 9.1 mg/dL (8.6-10.3); Chloride 109 mmol/L (101-111); EGFR Non-African American 51.2 (>60); Glucose 110 mg/dL (70-100); Sodium 139 mmol/L (135-145)
[2020-01-16] MEDS: Enoxaparin 40 MG/0.4 ML SYR SUBCUT SCH (15:23)
[2020-01-16] MEDS: CMCS:Rosuvastatin 5 mg TAB (NF) PO SCH (18:01)
[2020-01-17] MEDS: NS 0.9% 1000 ml BAG 1,000 ML IV SCH (02:09)
[2020-01-17] MEDS: ZOSYN 3.375 GM Q8H per EXTENDED INFUSION IV SCH ×2 (02:22→10:44)
[2020-01-17] MEDS: Aspirin EC 81 mg TAB.EC (enteric coated) PO SCH (08:41)
[2020-01-17 11:50] VITALS: BP 140/76
[2020-01-17] MEDS: Enoxaparin 40 MG/0.4 ML SYR SUBCUT SCH (15:35)
== END 2020-01-17 17:00 | disposition home or self-care (01) | DRG 392 ==
LOC: ED 10:53 → MED 15:16
PROVIDERS: ADMIT Internal Medicine; ATTEND Internal Medicine

== ENCOUNTER 2020-08-14 19:54 | Inpatient (IN) ==
[2020-08-14] MEDS ORDERED: NS 0.9% 1000 ml BAG 1,000 ML IV ONE ×2 (20:27→21:09)
[2020-08-14] MEDS ORDERED: Morphine 4 MG/ML VIAL (1 ml) IV ONE ×2 (20:41→22:47)
[2020-08-14] MEDS ORDERED: Ondansetron 4 mg VIAL 2 MG/ML 2 ml VIAL IV ONE ×2 (20:41→22:47)
[2020-08-14 21:18] LABS: ABS Eosinophils 0.1 10^3/ul (0-0.6); ABS Lymphocytes 0.2 10^3/ul (1.0-4.8); ABS Monocytes 0.4 10^3/ul (0-0.8); ABS Neutrophils 10.5 10^3/ul (1.5-7.7); Eosinophil % 0.5 %; Hematocrit 52 % (42-52); Hemoglobin 18.1 g/dL (14.0-18.0); Lymphocyte % 1.6 %; Mean Corpuscular HGB Conc 35 g/dL (31-36); Mean Corpuscular Hemoglobin 30 pg (27-31); Mean Corpuscular Volume 86 fL (80-94); Mean Platelet Volume 8.3 fL (7.4-10.4); Nucleated Red Blood Cells % 0.1; Platelet Count 256 10^3/uL (150-450); Red Blood Count 6.06 10^6 /uL (4.18-5.48); Red Cell Distribution Width 16 % (10-15); White Blood Count 11.1 10^3/uL (3.5-10.8)
[2020-08-14 21:32] LABS: INR 0.99 (0.82-1.09)
[2020-08-14 21:43] LABS: Albumin/Globulin Ratio 1.6 (1-3); BUN/Creatinine Ratio 17.4 (8-20); C Reactive Protein 2.57 mg/L (<8.01); Calcium 10.1 mg/dL (8.6-10.3); EGFR African American 48.1 (>60); EGFR Non-African American 39.7 (>60); Globulin 3.2 g/dL (2-4); Potassium 4.5 mmol/L (3.5-5.0); Total Bilirubin 0.8 mg/dL (0.2-1.0); Total Protein 8.2 g/dL (6.4-8.9)
[2020-08-14] MEDS ORDERED: Iodixanol (CONTRAST) 320 MG/ML 100 ML SDV IV ONE (22:18)
[2020-08-14] MEDS ORDERED: Piperacillin/Tazobac ADVAN 3.375 GM in NS 0.9% 100 ml BAG 100 ML IV ONE (22:47)
[2020-08-14] MEDS ORDERED: NS 0.9% 100 ml BAG 0 ML ONE (23:09)
[2020-08-14] MEDS: NS 0.9% 1000 ml BAG 1,000 ML IV SCH (23:18)
[2020-08-15] MEDS ORDERED: NS 0.9% 500 ml BAG 500 ML IV ONE (00:46)
[2020-08-15] MEDS ORDERED: Ondansetron 4 mg VIAL 2 MG/ML 2 ml VIAL IV PRN (00:58)
[2020-08-15] MEDS ORDERED: NS 0.9% 1000 ml BAG 1,000 ML IV SCH (01:00)
[2020-08-15] MEDS ORDERED: Dextrose 50% Syringe 50 ml 25 GM/50 ML SYRINGE IV PUSH PRN (01:00)
[2020-08-15] MEDS: Pantoprazole VIAL 40 MG VIAL IV SCH ×2 (05:10→22:15)
[2020-08-15 09:09] LABS: Hematocrit 47 % (42-52); Hemoglobin 15.5 g/dL (14.0-18.0); Mean Corpuscular HGB Conc 34 g/dL (31-36); Mean Corpuscular Hemoglobin 29 pg (27-31); Mean Corpuscular Volume 87 fL (80-94); Mean Platelet Volume 8.1 fL (7.4-10.4); Platelet Count 219 10^3/uL (150-450); Red Blood Count 5.34 10^6 /uL (4.18-5.48); Red Cell Distribution Width 17 % (10-15); White Blood Count 12.6 10^3/uL (3.5-10.8)
[2020-08-15 09:28] LABS: BUN/Creatinine Ratio 20.4 (8-20); Calcium 7.3 mg/dL (8.6-10.3); EGFR African American 53.4 (>60); EGFR Non-African American 44.2 (>60); Potassium 4.5 mmol/L (3.5-5.0)
[2020-08-15] MEDS ORDERED: Lactated Ringers 1000 ml BAG 1,000 ML IV ONE ×2 (09:34→14:08)
[2020-08-15 09:36] LABS: ABS Lymphocytes 0.2 10^3/ul (1.0-4.8); ABS Monocytes 0.8 10^3/ul (0-0.8); ABS Neutrophils 11.6 10^3/ul (1.5-7.7); Eosinophil % 0.1 %; Lymphocyte % 1.4 %; Nucleated Red Blood Cells % 0.1
[2020-08-15] MEDS: DULoxetine DR 30 mg CAP PO SCH (10:08)
[2020-08-15 12:33] LABS: Hematocrit 44 % (42-52); Hemoglobin 14.3 g/dL (14.0-18.0)
[2020-08-15 13:33] LABS: Urine Appearance Clear; Urine Bilirubin Negative (Negative); Urine Blood Negative (Negative); Urine Color Yellow; Urine Glucose 3+(>=500 mg/dL) (Negative); Urine Ketones Negative (Negative); Urine Nitrite Negative (Negative); Urine Protein Negative (Negative); Urine Specific Gravity 1.041 (1.010-1.030); Urine Urobilinogen Negative (Negative)
[2020-08-15] MEDS: CMCS: Rosuvastatin 5 mg TAB (NF) PO SCH (17:33)
[2020-08-15 17:38] LABS: Hematocrit 39 % (42-52); Hemoglobin 12.9 g/dL (14.0-18.0)
[2020-08-16 00:46] LABS: Hematocrit 34 % (42-52); Hemoglobin 12.3 g/dL (14.0-18.0)
[2020-08-16 05:29] LABS: ABS Eosinophils 0.2 10^3/ul (0-0.6); ABS Lymphocytes 0.9 10^3/ul (1.0-4.8); ABS Monocytes 0.7 10^3/ul (0-0.8); ABS Neutrophils 3.6 10^3/ul (1.5-7.7); Eosinophil % 3.2 %; Hematocrit 35 % (42-52); Hemoglobin 12.1 g/dL (14.0-18.0); Lymphocyte % 16.1 %; Mean Corpuscular HGB Conc 34 g/dL (31-36); Mean Corpuscular Hemoglobin 30 pg (27-31); Mean Corpuscular Volume 86 fL (80-94); Mean Platelet Volume 7.4 fL (7.4-10.4); Nucleated Red Blood Cells % 0.1; Platelet Count 157 10^3/uL (150-450); Red Cell Distribution Width 17 % (10-15); White Blood Count 5.4 10^3/uL (3.5-10.8)
[2020-08-16 05:48] LABS: BUN/Creatinine Ratio 19.8 (8-20); Calcium 7.2 mg/dL (8.6-10.3); EGFR African American 68.9 (>60); EGFR Non-African American 56.9 (>60); Potassium 3.5 mmol/L (3.5-5.0)
[2020-08-16] MEDS ORDERED: Potassium Chlor 20 meq TAB.ER PO ONE (09:41)
[2020-08-16] MEDS: Pantoprazole VIAL 40 MG VIAL IV SCH ×2 (09:52→21:58)
[2020-08-16] MEDS: DULoxetine DR 30 mg CAP PO SCH (09:52)
[2020-08-16] MEDS ORDERED: Calcium Gluconate 3 GM in NS 0.9% 250 ml 250 ML IV ONE (10:30)
[2020-08-16] MEDS: NS 0.9% 1000 ml BAG 1,000 ML IV SCH (11:34)
[2020-08-16] MEDS: CMCS: Rosuvastatin 5 mg TAB (NF) PO SCH (17:08)
[2020-08-17] MEDS: NS 0.9% 1000 ml BAG 1,000 ML IV SCH ×2 (00:11→06:24)
[2020-08-17 05:59] LABS: ABS Eosinophils 0.2 10^3/ul (0-0.6); ABS Lymphocytes 1.1 10^3/ul (1.0-4.8); ABS Monocytes 0.5 10^3/ul (0-0.8); Eosinophil % 4.3 %; Hematocrit 37 % (42-52); Hemoglobin 12.2 g/dL (14.0-18.0); Lymphocyte % 23.6 %; Mean Corpuscular HGB Conc 33 g/dL (31-36); Mean Corpuscular Hemoglobin 29 pg (27-31); Mean Corpuscular Volume 89 fL (80-94); Nucleated Red Blood Cells % 0.2; Platelet Count 159 10^3/uL (150-450); Red Blood Count 4.17 10^6 /uL (4.18-5.48); Red Cell Distribution Width 16 % (10-15); White Blood Count 4.8 10^3/uL (3.5-10.8)
[2020-08-17 06:00] LABS: BUN/Creatinine Ratio 12.6 (8-20); EGFR African American 105.6 (>60); EGFR Non-African American 87.3 (>60); Magnesium 1.7 mg/dL (1.9-2.7); Potassium 3.6 mmol/L (3.5-5.0)
[2020-08-17] MEDS ORDERED: CALCIUM GLUCONATE 1GM/50ML NS 1 GM/50 ML BAG IV ONE (09:26)
[2020-08-17] MEDS: DULoxetine DR 30 mg CAP PO SCH (10:40)
[2020-08-17] MEDS: Pantoprazole VIAL 40 MG VIAL IV SCH (10:47)
[2020-08-17 11:03] VITALS: BP 148/78
== END 2020-08-17 16:50 | disposition home or self-care (01) | DRG 372 ==
LOC: ED 19:54 → MED 19:54
PROVIDERS: ADMIT Internal Medicine; ATTEND Pediatrics

== ENCOUNTER 2021-05-02 10:27 | Inpatient (IN) ==
[2021-05-02 13:12] LABS: ABS Eosinophils 0.1 10^3/ul (0-0.6); ABS Monocytes 0.3 10^3/ul (0-0.8); Eosinophil % 2.1 %; Hematocrit 39 % (42-52); Hemoglobin 13.5 g/dL (14.0-18.0); Mean Corpuscular HGB Conc 34 g/dL (31-36); Mean Corpuscular Hemoglobin 30 pg (27-31); Mean Corpuscular Volume 88 fL (80-94); Mean Platelet Volume 7.7 fL (7.4-10.4); Nucleated Red Blood Cells % 0.1; Platelet Count 226 10^3/uL (150-450); Red Blood Count 4.46 10^6 /uL (4.18-5.48); Red Cell Distribution Width 14 % (10-15); White Blood Count 6.5 10^3/uL (3.5-10.8)
[2021-05-02 13:23] LABS: Activated Partial Thrombo Time 27.7 seconds (26.0-38.0); INR 1.06 (0.86-1.15)
[2021-05-02 14:11] LABS: Troponin I 0.01 ng/mL (<0.03)
[2021-05-02 14:13] LABS: Albumin 4.2 g/dL (3.2-5.2); Albumin/Globulin Ratio 1.5 (1-3); Calcium 8.7 mg/dL (8.6-10.3); Globulin 2.8 g/dL (2-4); Potassium 4.2 mmol/L (3.5-5.0); Total Bilirubin 0.5 mg/dL (0.2-1.0); eGFR CKD-EPI 75.1 (>60)
[2021-05-02] MEDS ORDERED: Pantoprazole VIAL 40 MG VIAL IV ONE (14:31)
[2021-05-02 15:27] LABS: Rapid COVID-19 Molecular Undetected (Undetected)
[2021-05-02] MEDS ORDERED: Ondansetron 4 mg VIAL 2 MG/ML 2 ml VIAL IV PRN (15:31)
[2021-05-02] MEDS ORDERED: Dextrose 50% Syringe 50 ml 25 GM/50 ML SYRINGE IV PUSH PRN (15:34)
[2021-05-02] MEDS: Pantoprazole VIAL 40 MG VIAL IV SCH (15:49)
[2021-05-02 21:02] LABS: Hematocrit 36 % (42-52); Hemoglobin 12.6 g/dL (14.0-18.0)
[2021-05-03 09:34] LABS: ABS Eosinophils 0.2 10^3/ul (0-0.6); ABS Lymphocytes 1.1 10^3/ul (1.0-4.8); ABS Monocytes 0.3 10^3/ul (0-0.8); ABS Neutrophils 3.6 10^3/ul (1.5-7.7); Eosinophil % 3.9 %; Hematocrit 36 % (42-52); Hemoglobin 12.3 g/dL (14.0-18.0); Lymphocyte % 20.3 %; Mean Corpuscular HGB Conc 35 g/dL (31-36); Mean Corpuscular Hemoglobin 31 pg (27-31); Mean Corpuscular Volume 88 fL (80-94); Nucleated Red Blood Cells % 0.1; Platelet Count 196 10^3/uL (150-450); Red Blood Count 4.05 10^6 /uL (4.18-5.48); Red Cell Distribution Width 15 % (10-15); White Blood Count 5.3 10^3/uL (3.5-10.8)
[2021-05-03] MEDS: Pantoprazole VIAL 40 MG VIAL IV SCH (09:45)
[2021-05-03 09:46] LABS: Calcium 8.8 mg/dL (8.6-10.3); Potassium 4.1 mmol/L (3.5-5.0); eGFR CKD-EPI 74.3 (>60)
[2021-05-03 13:25] LABS: Hematocrit 36 % (42-52); Hemoglobin 12.2 g/dL (14.0-18.0)
[2021-05-04 06:13] LABS: ABS Eosinophils 0.3 10^3/ul (0-0.6); ABS Lymphocytes 1.2 10^3/ul (1.0-4.8); ABS Monocytes 0.4 10^3/ul (0-0.8); ABS Neutrophils 3.1 10^3/ul (1.5-7.7); Eosinophil % 5.1 %; Hematocrit 33 % (42-52); Hemoglobin 11.5 g/dL (14.0-18.0); Lymphocyte % 24.3 %; Mean Corpuscular HGB Conc 35 g/dL (31-36); Mean Corpuscular Hemoglobin 31 pg (27-31); Mean Corpuscular Volume 88 fL (80-94); Mean Platelet Volume 7.9 fL (7.4-10.4); Platelet Count 187 10^3/uL (150-450); Red Blood Count 3.73 10^6 /uL (4.18-5.48); Red Cell Distribution Width 14 % (10-15); White Blood Count 5.1 10^3/uL (3.5-10.8)
[2021-05-04] MEDS: Pantoprazole VIAL 40 MG VIAL IV SCH (08:45)
[2021-05-05 06:18] LABS: ABS Eosinophils 0.2 10^3/ul (0-0.6); ABS Lymphocytes 1.2 10^3/ul (1.0-4.8); ABS Monocytes 0.4 10^3/ul (0-0.8); ABS Neutrophils 3.9 10^3/ul (1.5-7.7); Eosinophil % 4.2 %; Hematocrit 34 % (42-52); Hemoglobin 11.9 g/dL (14.0-18.0); Mean Corpuscular HGB Conc 35 g/dL (31-36); Mean Corpuscular Hemoglobin 30 pg (27-31); Mean Corpuscular Volume 87 fL (80-94); Mean Platelet Volume 7.6 fL (7.4-10.4); Platelet Count 207 10^3/uL (150-450); Red Blood Count 3.93 10^6 /uL (4.18-5.48); Red Cell Distribution Width 15 % (10-15); White Blood Count 5.9 10^3/uL (3.5-10.8)
[2021-05-05 06:37] LABS: Calcium 8.9 mg/dL (8.6-10.3); Potassium 4.1 mmol/L (3.5-5.0); eGFR CKD-EPI 74.3 (>60)
[2021-05-05 08:51] VITALS: BP 159/82
[2021-05-05] MEDS: Pantoprazole VIAL 40 MG VIAL IV SCH (08:56)
== END 2021-05-05 13:05 | disposition home or self-care (01) | DRG 378 ==
LOC: ED 10:27 → EDHOLD 10:27 → MED 19:50 → SUATTDRO 05-04 14:08
PROVIDERS: ADMIT Internal Medicine; ATTEND Internal Medicine